=== PATIENT | male | born 1955 | race Caucasian/White ===

== ENCOUNTER 2018-07-15 07:46 | Inpatient (IN) | payer MEDICARE ==
--- NOTE | 2018-07-02 19:20 | HP ---
HISTORY AND PHYSICAL: DATE OF ADMISSION/SURGERY: 07/15/18 DATE OF OFFICE VISIT: 07/02/18 SURGEON: Marj Gordillo MD.* (DICTATED BY LEONA BELTRAN) PROCEDURE: Right total hip arthroplasty. CHIEF COMPLAINT: Right hip pain. HISTORY OF PRESENT ILLNESS: Mr. Owusu is a 63-year-old gentleman with endstage osteoarthritis of the right hip. He has failed conservative treatment and elected to proceed with a right total hip arthroplasty, which is scheduled for 07/15/18. PAST MEDICAL HISTORY: 1. Hypertension. 2. Coronary artery disease. 3. History of CT. 4. Glaucoma of the left eye. 5. History of left leg fracture. 6. High cholesterol. 7. Vitamin B12 deficiency. 8. History of right femur fracture. PAST SURGICAL HISTORY: 1. Heart stent placement. 2. Eight surgeries for the left lower extremity. CURRENT MEDICATIONS: 1. Aspirin 81 mg daily. 2. Lisinopril 5 mg twice a day. 3. Atorvastatin calcium 40 mg daily. 4. Nitrostat sublingual as needed. 5. Metoprolol 50 mg twice a day. 6. Gabapentin 400 mg 3 times a day. 7. Omeprazole 40 mg daily. 8. Famotidine 40 mg q.h.s. 9. Pantoprazole sodium 40 mg daily. ALLERGIES: No known drug allergies. FAMILY HISTORY: Family history of AAA and coronary artery disease. SOCIAL HISTORY: He is a 63-year-old gentleman, lives with his girlfriend. He does not smoke. Uses recreational marijuana and occasional alcohol. REVIEW OF SYSTEMS: A complete 14-point review of systems is reviewed with the patient. It was positive for GERD. He denies history of DVT, PE, hepatitis, HIV or anesthesia problems. PHYSICAL EXAMINATION GENERAL: He is well developed, well nourished, in no acute distress. VITAL SIGNS: He stands 69 inches tall, weighs 205 pounds. Blood pressure 119/ 83, his heart rate is 82. HEENT: Normocephalic, atraumatic. NECK: Supple. No palpable lymph nodes. PULMONARY: The lungs are clear to auscultation bilaterally. CARDIO: Regular rate and rhythm. Strong S1 and S2. ABDOMEN: Soft, nontender, nondistended. MUSCULOSKELETAL: Right lower extremity: The skin is intact. There are no open wounds or abrasions. He walks with an antalgic type gait favoring his right hip. He has decreased internal and external rotation of the right hip. He has 2+ dorsalis pedis pulses. Intact sensation in his lower extremity. Muscle group strengths are intact at 5/5. NEUROLOGIC: He is alert and oriented x3. ASSESSMENT AND PLAN: Mr. Owusu is a 63-year-old gentleman with endstage osteoarthritis of the right hip. He has failed conservative treatment and elected to proceed with a right total hip arthroplasty. The surgery is scheduled for 07/15/[address] Gordillo discussed the risks and benefits of the surgery at today's visit and all of his questions were answered. He will follow with Dr. Gordillo in two weeks after the surgery. LEONA BELTRAN [id number]/CPS #: [id number] MTDD
[~2018-07-15 07:46] MED LIST: Buffered Lidocaine 0.9% SYRIN* 5 ML/SYR SYRINGE INTRADERM ONE; Dexamethasone IV* 4 MG/ML 1 ML (4 MG) IV SLOW PU ONE; Famotidine IV* 10 MG/ML 2 ML (20 mg) IV ONE
--- OUTSIDE RECORDS SUMMARY | 2018-07-15 07:53 | XMS REPORT ---
:1955 External Reference #:[id number] Author Organization [facility] Address [address] [place] [address] [place] [address] Phone [phone] Care Team Providers Name Role Phone Dennys Perez MD Primary Care Physician Unavailable Payers Type Date Identification Numbers Payment Provider Subscriber Commercial Policy Number: [id number] [employer] Louis Owusu PayID: [id number] [address] [place] [address] Medigap Part B Expires: 2018 Policy Number: Medicare Louis Leecott [id number] PayID: [id number] [address] [place] [address] Medigap Part B Expires: 2018 Policy Number: Medicare Louis Leecott [id number] PayID: [id number] [address] [place] [address] Problems Date Description Provider Status Onset: 11/08/2014 Acute myocardial infarction of Fei Arora M.D., [facility], Active anterior wall [facility] Onset: 11/08/2014 Chronic ischemic heart disease Fei Arora M.D., [facility], Active [facility] Onset: 11/08/2014 Primary cardiomyopathy Fei Arora M.D., [facility], Active [facility] Onset: 11/08/2014 Hyperlipidemia Fei Arora M.D., [facility], Active [facility] Onset: 11/08/2014 Benign essential hypertension Fei Arora M.D., [facility], Active [facility] Onset: 11/08/2014 Cardiovascular symptoms Fei Arora M.D., [facility], Active [facility] Onset: 12/26/2014 Peripheral vascular disease Fei Arora M.D., [facility], Active [facility] Onset: 07/19/2015 Essential hypertension Fei Arora M.D., [facility], Active [facility] Onset: 05/04/2017 Athscl heart disease of [place] Fei Arora M.D., [facility], Active coronary artery w/o ang pctrs [facility] Onset: 06/04/2018 Localized, primary osteoarthritis Marj Gordillo M.D. Active of the pelvic region and thigh Social History Type Date Description Comments Marital Status Significant Other Lives With Girlfriend Occupation Retired assembly inspector Occupation Disabled Cigarette Use Former Cigarette Smoker ETOH Use Denies alcohol use Smoking Patient is a former smoker quit in 2011, smoked for approx 40yrs 1-2PPD Recreational Drug Use Denies Drug Use Daily Caffeine Consumes on average 3 cups of decaff coffee per day Exercise Type/Frequency Exercises regularly Allergies, Adverse Reactions, Alerts Date Description Reaction Status Severity Comments 11/08/2014 NKDA active Medications Medication Date Status Form Strength Qnty SIG Indications Ordering Provider Aspirin / Active Tablets 81mg 1 by Unknown 0000 mouth every day Lisinopril / Active Tablets 5mg 180tab 1 by Fei 0000 s mouth Stefek, twice a M.D., day [facility], [facility] Atorvastatin / Active Tablets 40mg 90tabs 1 by Fei Calcium 0000 mouth Stefek, every day M.D., [facility], [facility] Nitrostat / Active Tablets 0.4mg 30tabs one sl Fei 0000 Sub q5min up Stefek, to 3 M.D., doses as [facility], needed [facility] Metoprolol / Active Tablets ER 50mg 180tab 1 tab by Fei Succinate ER 0000 24HR s mouth Stefek, twice a M.D., day [facility], [facility] Gabapentin / Active Capsules 400mg 1 by Unknown 0000 mouth three times a day Omeprazole / Active Capsules 40mg [address] mouth every day Famotidine / Active Tablets 40mg take 1 Unknown 0000 tablet by mouth at bedtime Pantoprazole / Active Tablets DR 40mg take 1 Unknown Sodium 0000 tablet by mouth once daily Brilinta 12/16/ Hx Tablets 60mg 180tab 1 by Fei 2015 s mouth Stefek, 06/07/ twice a M.D., 2017 [facility], [facility] Brilinta / Hx Tablets 90mg 60tabs 1 tab by Fei - mouth Stefek, 12/16/ twice a M.D., 2015 [facility], [facility] Pantoprazole / Hx Tablets DR 40mg 1 by Unknown Sodium 0000 - mouth 2016 Amitriptyline / Hx Tablets 25mg 2 by Unknown HCL 0000 - mouth 2017 night at bedtime Latanoprost / Hx Solution 0.005% Unknown - 2017 Medications Administered in Office Medication Date Status Form Strength Qnty SIG Indications Ordering Provider Inj, Administered Injection Edi Snowden Regadenoson, 018 August Sams 0.1 MG Technetium TC Administered Injection Edi Snowden 99M 018 August Sams Tetrofosmin, Per Unit Dose Up To 40 Millicuries Vital Signs Date Vital Result Comment 07/02/2018 Height 69 inches 5'9" Weight 205.00 lb BP Systolic 119 mmHg BP Diastolic 83 mmHg Respiratory Rate 17 /min Pain Level 4 BMI (Body Mass Index) 30.3 kg/m2 06/10/2018 Height 69 inches 5'9" Weight 205.25 lb Heart Rate 82 /min BP Systolic Sitting 128 mmHg manual cuff BP Diastolic Sitting 70 mmHg manual cuff BP Systolic Standing 124 mmHg BP Diastolic Standing 70 mmHg Pain Level 8 hip pain BMI (Body Mass Index) 30.3 kg/m2 06/04/2018 Heart Rate 76 /min BP Systolic 152 mmHg BP Diastolic 86 mmHg Respiratory Rate 16 /min Body Temperature 98.1 F Pain Level 8 05/04/2017 Height 70 inches 5'10" Weight 208.00 lb w/ shoes Heart Rate 66 /min reg BP Systolic Sitting 96 mmHg Rue, reg cuff BP Diastolic Sitting 76 mmHg Rue, reg cuff BP Systolic Standing 102 mmHg Rue BP Diastolic Standing 80 mmHg Rue Respiratory Rate 16 /min BMI (Body Mass Index) 29.8 kg/m2 Ejection Fraction 40-45% as of 12/12/14 echo 04/24/2016 Height 70 inches 5'10" Weight 194.00 lb Heart Rate 74 /min 86 BP Systolic Sitting 104 mmHg right arm, reg cuff BP Diastolic Sitting 84 mmHg right arm, reg cuff BP Systolic Standing 94 mmHg right arm, reg cuff BP Diastolic Standing 76 mmHg right arm, reg cuff Respiratory Rate 16 /min BMI (Body Mass Index) 27.8 kg/m2 Ejection Fraction 40-45% 12/12/14 07/19/2015 Height 70 inches 5'10" Weight 197.00 lb Heart Rate 60 /min 68 BP Systolic 116 mmHg left arm, reg cuff BP Diastolic 84 mmHg left arm, reg cuff BP Systolic Sitting 110 mmHg right arm, reg cuff BP Diastolic Sitting 84 mmHg right arm, reg cuff BP Systolic Standing 100 mmHg right arm, reg cuff BP Diastolic Standing 82 mmHg right arm, reg cuff Respiratory Rate 16 /min BMI (Body Mass Index) 28.3 kg/m2 Ejection Fraction 40-45% 12/12/14 01/09/2015 Height 70 inches 5'10" Weight 201.00 lb Heart Rate 60 /min 68 BP Systolic Sitting 122 mmHg left arm, reg cuff BP Diastolic Sitting 86 mmHg left arm, reg cuff BP Systolic Standing 118 mmHg left arm, reg cuff BP Diastolic Standing 84 mmHg left arm, reg cuff Respiratory Rate 14 /min BMI (Body Mass Index) 28.8 kg/m2 Ejection Fraction 40-45% 12/12/14 12/26/2014 Height 70 inches 5'10" Weight 201.00 lb Heart Rate 66 /min BP Systolic 110 mmHg right arm, reg cuff BP Diastolic 80 mmHg right arm, reg cuff BP Systolic Sitting 116 mmHg left arm, reg cuff BP Diastolic Sitting 86 mmHg left arm, reg cuff BP Systolic Standing 118 mmHg left arm, reg cuff BP Diastolic Standing 86 mmHg left arm, reg cuff Respiratory Rate 16 /min BMI (Body Mass Index) 28.8 kg/m2 11/08/2014 Height 70 inches 5'10" Weight 187.00 lb Heart Rate 78 /min 82 BP Systolic Sitting 94 mmHg right arm, reg cuff BP Diastolic Sitting 78 mmHg right arm, reg cuff BP Systolic Standing 92 mmHg right arm, reg cuff BP Diastolic Standing 74 mmHg right arm, reg cuff Respiratory Rate 16 /min BMI (Body Mass Index) 26.8 kg/m2 Results Test Date Test Result H/L Range Note Lipid Profile (Trig/Chol/HDL) 05/18/2017 Triglycerides 210 mg/dL 1 Cholesterol 118 mg/dL 2 HDL Cholesterol 34.5 mg/dL 3 LDL Cholesterol 42 mg/dL 4 Laboratory test finding 05/18/2017 Alt 13 U/L 7-52 5 Ast (Sgot) 21 U/L 13-39 6 Creatinine 12/26/2014 Creatinine 1.11 mg/dL 0.67-1.17 Egfr Non- 67.3 >60 Egfr 86.6 >60 7 Laboratory test finding 12/26/2014 Blood Urea Nitrogen 14 mg/dL 6-24 Laboratory test finding 12/12/2014 Alt 11 U/L 7-52 8, 9 Ast 16 U/L 13-39 8, 10 Lipid Profile (Trig/Chol/HDL) 12/12/2014 Triglycerides 89 mg/dL 8, 11 Cholesterol 91 mg/dL 8, 12 HDL Cholesterol 22.8 mg/dL 8, 13 LDL Cholesterol 50 mg/dL 8, 14 1 Desirable <150 Borderline high 150-199 High 200-499 Very High >500 2 Desirable <200 Borderline high 200-239 High >239 3 Low <40 Desirable: 40-60 High: >60 4 Desirable: <100 mg/dL Near Optimal: 100-129 mg/dL Borderline High: 130-159 mg/dL High: 160-189 mg/dL Very High: >189 mg/dL [address] Preez [address] Perez 7 Because ethnic data is not always readily available, this report includes an eGFR for both -Americans and non- Americans. The National Kidney Disease Education Program (NKDEP) does not endorse the use of the MDRD equation for patients that are not between the ages of 18 and 70, are , have extremes of body size, muscle mass, or nutritional status, or are non- or non-. According to the National Kidney Foundation, irrespective of diagnosis, the stage of the disease is based on the level of kidney function: Stage Description GFR(mL/min/1.73 m(2)) 1 Kidney damage with normal or decreased GFR 90 2 Kidney damage with mild decrease in GFR 60-89 3 Moderate decrease in GFR 30-59 4 Severe decrease in GFR 15-29 5 Kidney failure <15 (or dialysis) 8 FASTING to be done in mid december with copy to 9 FASTING to be done in mid december with copy to 10 FASTING to be done in mid december with copy to 11 Desirable <150 Borderline high 150-199 High 200-499 Very High >500 12 Desirable <200 Borderline high 200-239 High >239 13 Low <40 Desirable: 40-60 High: >60 14 Desirable: <100 mg/dL Near Optimal: 100-129 mg/dL Borderline High: 130-159 mg/dL High: 160-189 mg/dL Very High: >189 mg/dL Procedures Date CPT Code Description Status 07/01/2018 83586 ECHO Transthoracic, Real-Time 2D With Doppler And Color Completed Flow 06/23/2018 91677 Stress Test Completed 06/23/2018 54798 Myocardial Perfusion Imaging Tomographic (Spect) Completed Multiple Studies 06/10/2018 10464 EKG Tracing & Interpretation Completed 05/04/2017 76943 EKG Tracing & Interpretation Completed 04/24/2016 84979 EKG Tracing & Interpretation Completed 07/19/2015 63532 EKG Tracing & Interpretation Completed 12/12/2014 64929 ECHO Transthorasic Realtime 2D W Doppler & Color Flow Completed Hosp 11/08/2014 58908 EKG Tracing & Interpretation Completed 11/01/2014 09275 EKG, Interpretation Only Completed 10/31/2014 99346 EKG, Interpretation Only Completed 10/30/2014 22604 ECHO Transthorasic Realtime 2D W Doppler & Color Flow Completed Hosp 10/30/2014 72637 EKG, Interpretation Only Completed 10/29/2014 16245 EKG, Interpretation Only Completed 10/29/2014 98326 Cath PLMT&NJX L Ventriculog Img S&I Completed 10/28/2014 79816 EKG, Interpretation Only Completed 10/28/2014 66227 EKG, Interpretation Only Completed 10/28/2014 93669 Revascularization Acute Total/Subtotal Occlusion Completed 10/26/2014 44709 ECHO Transthorasic Realtime 2D W Doppler & Color Flow Completed Hosp 10/26/2014 92403 EKG, Interpretation Only Completed 10/25/2014 20770 ECHO Transthorasic Realtime 2D W Doppler & Color Flow Completed Hosp 10/25/2014 96921 EKG, Interpretation Only Completed 10/24/2014 75727 EKG, Interpretation Only Completed 10/23/2014 70580 ECHO Transthorasic Realtime 2D W Doppler & Color Flow Completed Hosp 10/23/2014 25262 EKG, Interpretation Only Completed 10/22/2014 44402 Cath PLMT&NJX L Ventriculog Img S&I Completed 10/22/2014 27817 EKG, Interpretation Only Completed 10/22/2014 35598 Revascularization Acute Total/Subtotal Occlusion Completed Encounters Type Date Location Provider CPT E/M Dx Office Visit 06/10/2018 11:00a [facility] Tre MarisCharles Crowell, [address] I10 [facility] August I25.10 I25.2 E78.5 I44.0 I34.0 R06.00 Office Visit 06/04/2018 2:00p [facility] Marj Gordillo M.D. 74106 M25.551 [facility] M16.11 Office Visit 05/04/2017 2:40p [facility] Fei Arora M.D., 99216 I25.10 Director Of Regulatory Affairs AT [facility], [facility] I10 E78.5 I25.2 Office Visit 04/24/2016 2:40p [facility] Yamel Arora M.D., 21019 I25.9 Director Of Regulatory Affairs AT [facility], [facility] I10 E78.5 I25.10 Office Visit 07/19/2015 2:40p [facility] Yamel Arora M.D., 74995 I25.9 [facility] AT [facility], [facility] I10 E78.5 I25.5 Office Visit 01/09/2015 3:20p [facility] Yamel Arora M.D., 37111 414.9 Director Of Regulatory Affairs AT [facility], [facility] 401.1 272.4 Office Visit 12/26/2014 2:40p [facility] Yamel Arora M.D., 39650 414.9 [facility] AT [facility], [facility] 425.4 410.10 401.1 443.9 Office Visit 11/08/2014 3:00p [facility] Yamel Arora M.D., 98782 410.10 [facility] AT [facility], [facility] 414.9 425.4 272.4 401.1 785.9 Office Visit 11/01/2014 1:31p [facility], Karly Millard, 18849 780.60 Hospitalists N.P. 410.10 414.00 486 Office Visit 11/01/2014 10:55a [facility] Fei Arora M.D., 98643 410.10 Director Of Regulatory Affairs AT [facility], [facility] 414.9 425.4 Office Visit 10/31/2014 1:31p [facility], Karly Millard, 14595 780.60 Hospitalists N.P. 410.10 414.00 486 Office Visit 10/31/2014 9:42a [facility] Fei Arora M.D., 68767 410.40 Director Of Regulatory Affairs AT [facility], [facility] 425.4 Office Visit 10/30/2014 1:28p [facility], Anastasia Pleitez N.P. 18815 486 Hospitalists 410.10 414.00 401.9 Office Visit 10/30/2014 2:55p [facility] Fei Arora M.D., 59853 410.10 Director Of Regulatory Affairs AT [facility], [facility] 414.9 425.4 Office Visit 10/29/2014 1:28p [facility], Anastasia Pleitez N.P. 24624 486 Hospitalists 410.10 414.00 401.9 Office Visit 10/28/2014 2:51p [facility] Yamel Arora M.D., 52184 410.10 Director Of Regulatory Affairs AT [facility], [facility] 428.0 425.4 Office Visit 10/28/2014 1:27p [facility], Anastasia Pleitez N.P. 98180 486 Hospitalists 410.10 414.00 401.9 Office Visit 10/27/2014 1:27p [facility], Anastasia Pleitez N.P. 84434 410.10 Hospitalists 414.00 401.9 486 Office Visit 10/26/2014 1:26p [facility], Anastasia Pleitez N.P. 19687 410.10 Hospitalists 414.00 401.9 780.60 Office Visit 10/25/2014 1:25p [facility] Rigo Novoa, 54103 410.10 Assoc,pc Hospitalists N.P. 414.00 780.60 401.9 Office Visit 10/24/2014 3:18p [facility] Fei Arora M.D., 29783 410.10 Director Of Regulatory Affairs AT [facility], [facility] 414.9 Office Visit 10/23/2014 3:17p [facility] Fei Arora M.D., 15120 410.10 Director Of Regulatory Affairs AT [facility], [facility] 414.9 Plan of Care Future Appointment(s):07/28/2018 10:15 am - Marj Gordillo M.[facility]07/15/2018 3:30 pm - Marj Gordillo M.D. at [facility]07/02/2018 - Marj Gordillo M.D.M25.551 Pain in right hipFollow up:Follow up: 2 weeks after hqvnodtR03.11 Unilateral primary osteoarthritis, right hip
[2018-07-15] MEDS ORDERED: Famotidine IV* 10 MG/ML 2 ML (20 mg) ONE (08:07)
[2018-07-15] MEDS ORDERED: ceFAZolin 2 GM PREMIX in ORs 2 GM/50 ML BAG IVPB ONE (08:08)
[2018-07-15] MEDS ORDERED: Dexamethasone IV* 4 MG/ML 1 ML (4 MG) ONE (08:08)
[2018-07-15] MEDS ORDERED: fentaNYL* 50 MCG/ML 2 ML VIAL (100 MCG VIAL) ONE (09:38)
[2018-07-15] MEDS ORDERED: Midazolam* 1 MG/ML 2 ML VIAL (2 MG) ONE (09:38)
[2018-07-15] MEDS ORDERED: Bupivacaine 0.5% SDV PF* 30ML VIAL ONE (10:44)
[2018-07-15] MEDS ORDERED: Propofol* 10 MG/ML 20 ML BTL IV PUSH ONE (11:57)
[2018-07-15] MEDS ORDERED: Lidocaine 2% PF * 5 ML VIAL ONE (12:21)
[2018-07-15] MEDS ORDERED: Bupivacaine-MPF SPINAL* 7.5 MG/ML - 2ML AMP ONE (12:22)
[2018-07-15] MEDS ORDERED: Ondansetron INJ* 2 MG/ML VIAL IV PRN ×2 (12:25→14:02)
[2018-07-15] MEDS ORDERED: PROCHLORPERAZINE INJ 5 MG/ML 2 ML VIAL IV PRN (12:25)
[2018-07-15] MEDS ORDERED: Naloxone* 0.4 MG/ML 1 ML VIAL IV PRN (12:25)
[2018-07-15] MEDS ORDERED: oxyCODONE TAB* 5 MG TAB PO PRN (12:25)
[2018-07-15] MEDS ORDERED: Acetaminophen IV 1GM/100ML * 1,000 MG/100 ML VIAL IVPB ONE (12:25)
[2018-07-15] MEDS ORDERED: Ketorolac INJ* 30 MG/ML 1 ML VIAL IV PRN (12:25)
[2018-07-15] MEDS ORDERED: Morphine VIAL* 4 MG/ML VIAL (1 ml vial) IV PRN ×2 (12:25→14:02)
[2018-07-15] MEDS ORDERED: DiMENhydriNATE IV* 50 MG/ML VIAL IV PUSH PRN (12:25)
[2018-07-15] MEDS ORDERED: fentaNYL* 50 MCG/ML 2 ML VIAL (100 MCG VIAL) IV PRN (12:25)
[2018-07-15] MEDS ORDERED: oxyCODONE/Acetamin 5/325 MG* TAB PO PRN (14:02)
[2018-07-15] MEDS ORDERED: Cyclobenzaprine TAB* 10 MG PO PRN (14:02)
[2018-07-15] MEDS ORDERED: Magnesium Hydroxide LIQ* 30 ML UDC PO PRN (14:02)
[2018-07-15] MEDS ORDERED: diPHENhydraMINE IV* 50 MG/ML 1 ml VIAL (BENADRYL) IV PRN (14:02)
[2018-07-15] MEDS ORDERED: Bisacodyl SUPP* 10 MG SUPP PR PRN (14:02)
[2018-07-15] MEDS ORDERED: Acetaminophen TAB* 325 MG PO PRN (14:02)
[2018-07-15] MEDS ORDERED: oxyCODONE/Acetamin 5/325 MG* TAB ONE (16:50)
[2018-07-15] MEDS: oxyCODONE/Acetamin 5/325 MG* TAB PO PRN (16:51)
[2018-07-15] MEDS ORDERED: Warfarin TAB(*) 6 MG PO ONE (17:00)
[2018-07-15] MEDS: ceFAZolin 1 GM in Dextrose (*) 1 GM/50 ML BAG IVPB SCH (19:59)
[2018-07-15] MEDS ORDERED: LORazepam TAB(*) 1 MG PO SCH (20:00)
[2018-07-15] MEDS ORDERED: Famotidine TAB* 20 MG PO SCH (21:00)
[2018-07-15] MEDS: Docusate CAP* 100 MG PO SCH (21:02)
[2018-07-15] MEDS: Gabapentin CAP(*) 400 MG PO SCH (21:02)
[2018-07-15] MEDS: Metoprolol Succinate XL TAB* 50 MG PO SCH (21:02)
[2018-07-15] MEDS: oxyCODONE TAB* 5 MG TAB PO PRN (21:03)
[2018-07-15] MEDS: Magnesium Hydroxide LIQ* 30 ML UDC PO SCH (21:04)
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
[2018-07-16] MEDS: oxyCODONE/Acetamin 5/325 MG* TAB PO PRN ×2 (00:58→05:13)
[2018-07-16] MEDS: ceFAZolin 1 GM in Dextrose (*) 1 GM/50 ML BAG IVPB SCH ×2 (05:13→12:00)
[2018-07-16 06:05] LABS: Hematocrit 34 % (42-52); Hemoglobin 11.3 g/dl (14.0-18.0); Mean Platelet Volume 9.2 fL (7.4-10.4); Platelet Count 200 10^3/ul (150-450)
[2018-07-16 06:09] LABS: INR 0.94 (0.77-1.02)
[2018-07-16 06:22] LABS: EGFR Non-African American 70.1 (>60)
[2018-07-16] MEDS: Docusate CAP* 100 MG PO SCH (08:19)
[2018-07-16] MEDS: Metoprolol Succinate XL TAB* 50 MG PO SCH (08:19)
[2018-07-16] MEDS: Gabapentin CAP(*) 400 MG PO SCH (08:20)
[2018-07-16] MEDS: oxyCODONE TAB* 5 MG TAB PO PRN ×2 (08:20→12:00)
[2018-07-16] MEDS: Magnesium Hydroxide LIQ* 30 ML UDC PO SCH (08:23)
[2018-07-16] MEDS ORDERED: Folic Acid TAB* 1 MG PO SCH (09:00)
[2018-07-16] MEDS ORDERED: Vitamin THERAPEUTIC TAB PO SCH (09:00)
[2018-07-16] MEDS ORDERED: Multivitamins/Minerals TAB PO SCH (09:00)
[2018-07-16] MEDS ORDERED: Aspirin EC TAB* 81 MG TAB.EC PO SCH (09:00)
[2018-07-16] MEDS ORDERED: Atorvastatin* 40 MG TAB PO SCH (09:00)
[2018-07-16] MEDS ORDERED: Lisinopril TAB* 5 MG PO SCH (09:00)
[2018-07-16] MEDS ORDERED: Thiamine TAB* 100 MG TAB PO SCH (09:00)
[2018-07-16] MEDS ORDERED: Pneumococcal *Vac Polyvalent 0.5 ML VIAL IM ONE (09:00)
--- NOTE | 2018-07-16 10:12 | PN ---
Progress Note - Progress Note Date of Service: 07/16/18 SOAP: [] Progress Note - Progress Note Date of Service: 07/16/18 SOAP: Subjective: []Patient seen OOB in chair, doing very well. Walked with therapy this am. Denies dizziness, SOB or chest pain. Hopes to go home this afternoon after therapy session. Objective: [] Vital Signs Temp 98.6 F 07/16/18 08:17 Pulse 80 07/16/18 08:17 Resp 18 07/16/18 09:38 BP 124/66 07/16/18 08:17 Pulse Ox 97 07/16/18 08:17 Intake & Output 07/15/18 07/16/18 07/16/18 18:59 06:59 18:59 Intake Total 1999 1700 470 Output Total 650 400 Balance 1350 1300 470 Weight 298 lb 3.2 oz Intake: IV Fluids 1999 lr 1999 Oral 1700 470 Output: Simon 500 400 Estimated Blood Loss 150 Laboratory Results - last 24 hr 07/16/18 07/16/18 07/16/18 05:28 05:28 05:28 Hgb 12.8 L Hct 38 L Plt Count 251 MPV 7.0 L INR (Anticoag Therapy) 1.05 H Sodium 134 L Potassium 3.9 Chloride 102 Carbon Dioxide 26 Anion Gap 6 BUN 18 Creatinine 0.96 Est GFR ( Amer) 95.4 Est GFR (Non-Af Amer) 78.9 BUN/Creatinine Ratio 18.8 Glucose 133 H Calcium 8.4 L Right hip dressings changed, few drops of blood on dressings, wound benign, no ecchymosis, minimal buttock/thigh edema calf NT and soft +DF/PF right ankle sensation intact distally Assessment: []s/p RTH arthroplasty POD #1 Plan: []PT/OT this afternoon Home this evening Change DVT prophylaxis to ASA 325mg BID Follow up as scheduled 10-[address] Gordillo
[2018-07-16 11:40] VITALS: BP 152/93
[2018-07-16] MEDS ORDERED: Cyanocobalamin INJ * 1,000 MCG/ML VIAL 1 ML VIAL IM ONE (11:57)
[2018-07-16] MEDS ORDERED: Enoxaparin(*) 40 MG/0.4 ML SYR SUBCUT SCH (12:00)
--- NOTE | 2018-07-16 20:43 | OP ---
OPERATIVE REPORT: DATE OF OPERATION: 07/15/18 DATE OF : 51 SURGEON: Marj Gordillo MD CUPOLA MECHANIC: LEONA Guaman Mr. Palmer did help throughout the procedure with preparation of the leg, wound retraction, manipulation of the hip, and wound closure. ANESTHESIOLOGIST: Dr. Kimball. ANESTHESIA: Spinal. PRE-OP DIAGNOSIS: Severe end-stage degenerative osteoarthritis of the right hip. POST-OP DIAGNOSIS: Severe end-stage degenerative osteoarthritis of the right hip. OPERATIVE PROCEDURE: Right total hip arthroplasty. INDICATIONS: Mr. Owusu is a 63-year-old gentleman with years of increasingly severe right hip pain. Radiographs showed nxlv-ih-ltsy arthritis. He failed conservative treatment with antiinflammatories, pain medication, and physical therapy. Due to continued pain and decreased quality of life, he elected to undergo a right total hip arthroplasty. Informed consent was obtained from the patient. He understood the risks of the surgery included but were not limited to bleeding, infection, damage to nearby structures, continued pain, need for further surgery, intraoperative fracture, nerve palsy, hardware failure or loosening, dislocation, leg length discrepancies, stroke, heart attack, blood clot, and . He wished to proceed. COMPLICATIONS: None. ESTIMATED BLOOD LOSS: 250 cc. SPECIMENS: Femoral head and acetabular reaming sent to Pathology. HARDWARE USED: This is uncemented [place] total hip arthroplasty hardware. For the cup, a Tritanium 56E, a single 20-mm screw was used. For the liner, a Trident X3 0-degree polyethylene liner 36E. For the stem, an Accolade II, size 6 with a 127-degree neck. For the head, a Biolox delta ceramic 36 +0 femoral head. INTRAOPERATIVE FINDINGS: Intraoperatively, the patient was noted to have severe end-stage arthritis. There was complete loss of cartilage in the femoral head and acetabulum. Significant osteophyte formation around the acetabular rim. Of note, the patient had extreme leg length discrepancy with the right leg greater than 4 inches longer than the left when compared preoperatively. DESCRIPTION OF PROCEDURE: Mr. Owusu was identified in the preanesthesia unit. His right lower extremity was marked as the correct operative side. Informed consent was signed and placed in the chart. The patient was taken to the operating room and placed under spinal anesthesia. A Simon catheter was placed. The patient was placed in the left lateral decubitus position on the peg board and all bony prominences were well padded. Right lower extremity was prepped and draped in the usual sterile fashion. Preop time-out was made to correctly identify the patient, side, and site. Appropriate perioperative antibiotics were given within 1 hour of incision. A posterior hip incision was made with a 10-blade and carried down to the lateral fascial layer. Lateral fascial layer was incised in line with the skin incision and Charnley retractor was placed. The piriformis and conjoint tendons were identified and elevated off the posterolateral femur using electrocautery. These were tagged with #5 Ethibond. Next, a standard posterolateral capsular flap was made with electrocautery and tagged with #5 Ethibond. The hip was carefully dislocated. Lesser troch to center of the femoral head measured 62 mm. Oscillating saw was used to make the appropriate femoral neck cut and the femoral head was removed. The femur was retracted anteriorly. After appropriate placement of retractors , the acetabulum was well visualized. Long-handled knife was used to sharply remove any remaining labrum from the acetabular rim. The acetabulum was sequentially reamed up to a size 55. 55 reamer obtained a bleeding subchondral bone bed. 55 trial had excellent fit and stability. Final implant chosen was a 56E Tritanium cluster hole shell. This was impacted into the acetabulum without difficulty. There was excellent stability. A single 20-mm screw was placed in the superoposterior quadrant for extra stability. Liner chosen was a Trident X3 0-degree 36E liner. This was impacted into the acetabulum without difficulty. Stability of the liner was checked and rechecked and noted to be stable. Next, attention was turned to preparation of the femoral canal. A canal finder was used to enter the femur. Femur was sequentially broached up to a size 6. Size 6 broach had excellent fit with appropriate anteversion. A 127-neck trial was chosen with a 36 +0 head trial. Lesser troch to center of the femoral head measurement was at 61 mm. The hip was reduced and taken through a range of motion. The hip was stable in all positions. There was good soft tissue tension and appropriate leg lengths. The hip was carefully dislocated. All trials were removed. Final implant chosen was an Accolade II, size 6 with a 127-degree neck. This was impacted into the femoral canal without difficulty or complication. The stem was stable with appropriate anteversion. 36 +0 Biolox delta ceramic V40 femoral head was chosen and impacted on to the neck. Lesser troch to center of the femoral head measurement was 61 mm. The hip was reduced and taken through range of motion. The hip was stable in all positions. There was good soft tissue tension and appropriate leg length. The hip was copiously irrigated with sterile saline. Previously tagged tendons and capsule were reapproximated into the posterolateral femur through 2 trochanteric drill holes. Lateral fascial layer was closed using interrupted # 1 Vicryls. The rest of the incision was closed in a layered fashion using 0 and 2-0 Vicryls. Skin was closed using running 3-0 Monocryl and Dermabond. Sterile Adaptic, 4x4s, and paper tape were used to cover the incision. The patient's anesthesia was reversed without difficulty. He was taken to the PACU in stable condition. Intended weightbearing will be weightbearing as tolerated. Intended DVT prophylaxis will be Coumadin with a Lovenox bridge. [id number]/[facility] #: [id number] SARMAD
[2018-07-16] MEDS ORDERED: Aspirin EC TAB* 325 MG PO SCH (21:00)
--- NOTE | 2018-07-17 03:29 | DS ---
AMENDED REPORT NOW INCLUDES COSIGNER DESIGNATION DISCHARGE SUMMARY: DATE ADMISSION: 07/15/18 DATE OF DISCHARGE: 07/16/18 ATTENDING PHYSICIAN: Marj Gordillo MD * (DICTATED BY LEONA KELLEY) ADMISSION DIAGNOSIS: End-stage osteoarthritis right hip. DISCHARGE DIAGNOSIS: End-stage osteoarthritis right hip. OPERATION PERFORMED: Right total hip arthroplasty. HOSPITAL COURSE: The patient is a 63-year-old male with progressive worsening right hip pain. His x-rays revealed end-stage osteoarthritis of the right hip and failing conservative management, he elected to proceed with right total hip arthroplasty. He was taken to the operating room under the care of Dr. Marj Gordillo on the date of 07/15/18. He tolerated the procedure well and left the operating room in stable condition. Postoperatively he progressed very well with physical therapy and occupational therapy goals, bearing weight as tolerated on the right lower extremity. He had no postoperative complications. His pain was under excellent control. It was felt that he was stable medically and orthopedically for discharge to home on the date of 07/16/18. CONDITION ON DISCHARGE: The patient is afebrile. His vital signs are stable. His right hip incision is not draining. There is minimal swelling. His calf is soft and nontender and his neurovascular status is intact. He has active dorsiflexion and plantarflexion of his right ankle. PLAN: The patient will be discharged to home on the date of 07/16/18 after his afternoon physical therapy session. We will discontinue the Coumadin and switch him to aspirin 325 mg p.o. twice daily with food for his DVT prophylaxis. A prescription of Percocet 5/325 mg 1 tablet p.o. q.4 hours p.r.n. pain #30 sent here with [facility] employee pharmacy med to bed prior to his discharge today. We recommend a followup as scheduled with Dr. Gordillo in roughly 10 to 14 days. All questions were answered prior to his discharge home today. LEONA KELLEY [id number]/[facility] #: [id number] MTDJacqueline
== END 2018-07-16 14:40 | disposition home or self-care (01) | DRG 470 ==
LOC: AA 07:48 → SSU 15:45
PROVIDERS: ADMIT Orthopaedic Surgery Adult Reconstructive Orthopaedic Surgery; ATTEND Student in an Organized Health Care Education/Training Program
PROC: 0SR904A Replacement of Right Hip Joint with Ceramic on Polyethylene Synthetic Substitute, Uncemented, Open Approach (ICD-10-PCS; principal; 2018-07-15 11:00)
DX: M16.11 Unilateral primary osteoarthritis, right hip (principal); G45.8 Other transient cerebral ischemic attacks and related syndromes; I42.9 Cardiomyopathy, unspecified; I11.9 Hypertensive heart disease without heart failure; I25.10 Atherosclerotic heart disease of native coronary artery without angina pectoris; Z95.5 Presence of coronary angioplasty implant and graft; H40.9 Unspecified glaucoma; E53.8 Deficiency of other specified B group vitamins; F12.90 Cannabis use, unspecified, uncomplicated; M25.751 Osteophyte, right hip; K21.9 Gastro-esophageal reflux disease without esophagitis; E78.5 Hyperlipidemia, unspecified; I34.0 Nonrheumatic mitral (valve) insufficiency; I73.9 Peripheral vascular disease, unspecified; I25.2 Old myocardial infarction; Z82.49 Family history of ischemic heart disease and other diseases of the circulatory system; Z79.899 Other long term (current) drug therapy; Z79.82 Long term (current) use of aspirin; Z87.81 Personal history of (healed) traumatic fracture; Z87.891 Personal history of nicotine dependence
CPT/HCPCS: 36415; 72170; 80048; 85014; 85018; 85049; 85610; A9270-GY; C1713; C1776; G8978-GP-CJ; G8979-GP-CI; G8987-GO-CJ; G8988-GO-CI; J0690; J1100; J1650; J2250; J2704; J3010; J3420

== ENCOUNTER 2019-08-02 12:14 | Day surgery (SDC) | payer MEDICARE ==
[~2019-08-02 12:14] MED LIST changes: -Buffered Lidocaine 0.9% SYRIN* 5 ML/SYR SYRINGE INTRADERM ONE; +Buffered Lidocaine 1% SYRIN* 1 ML/SYRINGE INTRADERM ONE; -Dexamethasone IV* 4 MG/ML 1 ML (4 MG) IV SLOW PU ONE; -Famotidine IV* 10 MG/ML 2 ML (20 mg) IV ONE; +Lactated Ringers 1000 ML Bag* 1,000 ML IV SCH
[2019-08-02] MEDS ORDERED: Propofol* 10 MG/ML 20 ML BTL ONE (13:59)
[2019-08-02] MEDS ORDERED: Lidocaine 2% PF * 5 ML VIAL ONE (13:59)
[2019-08-02] MEDS ORDERED: Rocuronium* 10 MG/ML VIAL ONE (14:00)
[2019-08-02] MEDS ORDERED: fentaNYL* 50 MCG/ML 2 ML VIAL (100 MCG VIAL) ONE (14:01)
[2019-08-02] MEDS ORDERED: Benzocaine/Butamben/Tetracain (CETACAINE - SINGLE USE) 5 gm TOPICAL ONE (14:12)
[2019-08-02] MEDS ORDERED: Sugammadex * 200 MG/2 ML VIAL IV PUSH ONE (15:06)
[2019-08-02] MEDS ORDERED: Levalbuterol 1.25MG/0.5ML NEB ONE (15:25)
[2019-08-02] MEDS ORDERED: fentaNYL* 50 MCG/ML 2 ML VIAL (100 MCG VIAL) IV PRN (15:26)
[2019-08-02] MEDS ORDERED: Ondansetron INJ* 2 MG/ML VIAL IV PRN (15:26)
[2019-08-02] MEDS ORDERED: Naloxone* 0.4 MG/ML 1 ML VIAL IV PRN (15:26)
[2019-08-02 16:23] VITALS: BP 150/92
[2019-08-02] MEDS ORDERED: Levalbuterol 1.25MG/0.5ML NEB INH ONE (16:25)
--- NOTE | 2019-08-02 16:28 | BRIEFOPN ---
Brief Operative/Procedure Note - Operation Details Pre-Op Diagnosis: Lung mass, lymphadenopathy Post-Op Diagnosis: Squamous cell lung cancer Procedures: Bronch/EBUS with FNA of lymph nodes, endobronchial lesion and bx of endobronchial mass on rt side Surgeon(s)/Proceduralists: Christopher Anesthesia: [place]- Dr Padron Estimated Blood Loss: negligable Findings: Endobronchial lesion Rt main stem at level of take off RUL bronchus with obstruction of RUL bronchus. Specimen(s)/Culture(s) Description: Cytology from L4, Station7, R4, endobronchial lesion. Surgical bx from Rt main stem endobronchial lesion Complications: None
--- NOTE | 2019-08-02 21:24 | PRO ---
BRONCHOSCOPY REPORT: DATE OF PROCEDURE: 08/02/19 - [facility] PROCEDURE PERFORMED: Bronchoscopy with endobronchial ultrasound-guided fine needle aspiration, mediastinal nodes, and endobronchial lesion. Endobronchial biopsy from right mainstem bronchus near the takeoff right upper lobe bronchus. ANESTHESIA: General anesthesia. ANESTHESIOLOGIST: Dr. Padron. PREPROCEDURAL DIAGNOSIS: Endobronchial lesion and postobstructive pneumonia, enlarged lymph nodes. DESCRIPTION OF PROCEDURE: Informed consent was obtained from the patient prior to the procedure after all the risks and benefits were thoroughly explained. Appropriate time-out was performed and agreed on by attending staff prior to the procedure. Flexible Olympus bronchoscope was inserted through ET tube for airway inspection. ET tube positioning was confirmed to be at the level of stoney and was pulled back 2 cm. Bronchoscope was then advanced into the left bronchial tree which was inspected. No endobronchial lesions were noted. Thick secretions were noted and were suctioned out. Bronchoscope was then advanced into the right bronchus. The patient noted to have endobronchial lesion with near complete occlusion of right upper lobe bronchus with mucosal irregularity in the area. Bronchoscope was then advanced. Right middle lobe and right lower lobe bronchus were patent and open. Minimal secretions were noted and were suctioned out. The patient was bleeding with slight suction with the bronchoscope. Bronchoscope was then withdrawn and EBUS bronchoscope was inserted. L4 was minimally enlarged and was sampled with 4 passes. Rapid on-site evaluation revealed lymphatic tissue with no malignant cells. Station 7 was sampled with 2 passes. Rapid on-site evaluation revealed lymphatic tissue with no malignant cells. R4 was sampled also with 2 passes. Rapid on- site evaluation revealed lymphatic tissue with some atypical cells. Endobronchial lesion was then accessed with 2 passes. Rapid on-site evaluation revealed malignant cells consistent with squamous. EBUS bronchoscope was then withdrawn and flexible bronchoscope was reinserted. Endobronchial biopsies with 3 passes were obtained from endobronchial lesion. Specimen was placed in formalin. The patient tolerated the procedure well. The patient was extubated and seen in Recovery in optimal condition. [id number]/[facility] #: [id number] [facility]
== END 2019-08-02 16:25 | disposition home or self-care (01) ==
LOC: OR 12:14
PROVIDERS: ATTEND Internal Medicine
DX: C34.11 Malignant neoplasm of upper lobe, right bronchus or lung (principal); C77.1 Secondary and unspecified malignant neoplasm of intrathoracic lymph nodes; I10 Essential (primary) hypertension; I25.10 Atherosclerotic heart disease of native coronary artery without angina pectoris; Z87.891 Personal history of nicotine dependence; K21.9 Gastro-esophageal reflux disease without esophagitis; I25.2 Old myocardial infarction; Z95.5 Presence of coronary angioplasty implant and graft; E78.5 Hyperlipidemia, unspecified; I44.0 Atrioventricular block, first degree; I34.0 Nonrheumatic mitral (valve) insufficiency
CPT/HCPCS: 88172; 88173; 88177; 88305; 88341; 88342; 88360; A9270-GY; J2704; J3010